=== PATIENT | female | born 1970 | race Caucasian/White ===

== ENCOUNTER 2019-05-26 07:04 | Emergency (ER) | payer OTHER ==
[~2019-05-26] VITALS: Ht 154.9 cm; Wt 54.4 kg
[2019-05-26] MEDS ORDERED: IRON18 M1 PO (07:15)
[2019-05-26] MEDS ORDERED: BIRTH CONTROL PILL (07:15)
[2019-05-26 07:49] LABS: URINE BILIRUBIN NEGATIVE (Negative); URINE BLOOD 3+ (Negative); URINE CLARITY SL CLOUDY; URINE COLOR RED; URINE GLUCOSE-RANDOM TRACE (Negative); URINE KETONES 1+ (Negative); URINE LEUKOCYTES-REFLEX 1+ (Negative); URINE PROTEIN 2+ (Negative); URINE SPECIFIC GRAVITY 1.015 (1.005-1.030)
[2019-05-26 07:50] LABS: ABSOLUTE EOSINOPHILS 0.2 thou/uL (0.0-0.7); ABSOLUTE NEUTROPHILS 16.2 thou/uL (1.6-8.1); BASOPHILS 0.2 %; EOSINOPHILS 0.8 %; HEMOGLOBIN 9.9 gm/dL (12.0-15.0); LYMPHOCYTES 10.4 %; MCH 29.3 pg (26.0-34.0); MONOCYTES 5.1 %; MPV 7.8 fl. (7.2-11.1); NUCLEATED RBCS 0 /100WBC; PLATELET COUNT* 365 thou/uL (150-400); POLYS 83.5 %; RBC 3.37 mil/uL (4.20-5.00); RDW-CV 15.5 % (10.5-14.5); WBC 19.4 thou/uL (4.0-11.0)
[2019-05-26 07:51] LABS: URINE NITRITE-REFLEX POSITIVE (Negative)
[2019-05-26 07:57] LABS: CALCIUM 7.1 mg/dL (8.5-10.1); CREATININE 0.8 mg/dL (0.6-1.3); POTASSIUM 3.5 mmol/L (3.5-5.1)
[2019-05-26 08:01] LABS: ALBUMIN 2.9 g/dL (3.4-5.0); TOTAL BILIRUBIN 0.4 mg/dL (<0.1-1.0); TOTAL PROTEIN 6.4 g/dL (6.4-8.2)
[2019-05-26 08:12] LABS: BACTERIA-REFLEX 1-9 Few /HPF (None Seen); CASTS None Seen /LPF (None Seen); CRYSTALS None Seen /LPF (None Seen); SQUAMOUS 0-3 Few /LPF (0-3); URINE RBC >20 Many /HPF (0-2); URINE WBC-REFLEX 6-15 Few /HPF (0-5)
[2019-05-26 13:30] VITALS: BP 121/63
--- NOTE | 2019-05-27 10:23 | EKG ---
[place] [address] ELECTROCARDIOGRAM REPORT Name: ANASTASIA JURADO Cherie Room: [facility]#: [id number] Admission: 05/26/19 Attend Phys: Discharge: 05/26/19 Date of : 70 Date of Service: 05/26/1935 Report #: [id number] THIS REPORT FOR: //name// [facility] ED Test Date: 2019-05-26 Test Time: 07:35:49 Pat Name: ANASTASIA JURADO Department: Room: Gender: F [employer]ician: [facility] : 1970 Requested By: Ok Carmichael Order Number: [id number] MD: Hira Lucas Measurements Intervals [place] Rate: 89 P: 67 HI: 120 QRS: 73 QRSD: 89 T: 5 QT: 457 QTc: 557 Interpretive Statements Sinus rhythm Borderline T abnormalities, diffuse leads Prolonged QT interval No previous ECG available for comparison Electronically Signed On 05-27-2019 10:22:39 CDT by Hira Lucas [email or web address] <ELECTRONICALLY SIGNED> By: Hira Lucas MD, [facility] 05/27/19 1022 4 4 Hira Lucas MD, [facility] /EPI
== END 2019-05-26 13:30 | disposition short-term general hospital (02) ==
LOC: M.ERS 07:04
PROVIDERS: Emergency Medicine Emergency Medical Services
DX: D64.9 Anemia, unspecified (principal); N39.0 Urinary tract infection, site not specified; Z91.013 Allergy to seafood; Z88.0 Allergy status to penicillin